=== PATIENT | female | born 1985 | race Native Hawaiian/Other Pacific Islander ===

== ENCOUNTER 2022-07-19 10:45 | Emergency (ER) | payer SELFPAY ==
[~2022-07-19] VITALS: Ht 154.9 cm; Wt 85.3 kg
[2022-07-19] MEDS ORDERED: CEPH500 PO (11:18)
== END 2022-07-19 11:16 | disposition home or self-care (01) ==
LOC: ER 10:45
DX: L03.113 Cellulitis of right upper limb (principal); R03.0 Elevated blood-pressure reading, without diagnosis of hypertension; F17.200 Nicotine dependence, unspecified, uncomplicated
CPT/HCPCS: 99282